=== PATIENT | female | born 1935 | race Caucasian/White ===

== ENCOUNTER 2018-10-16 06:21 | Inpatient (IN) ==
--- NOTE | 2018-10-08 15:15 | EKG Report ---
Test Performed on : 10/08/2018 2:39:27 PM Test Reason : PAT Blood Pressure : / mmHG Vent. Rate : 079 BPM Atrial Rate : 079 BPM P-R Int : 162 ms QRS Dur : 086 ms QT Int : 380 ms P-R-T Axes : 066 054 047 degrees QTc Int : 435 ms Normal sinus rhythm. Nonspecific ST and T wave abnormality Abnormal ECG When compared with ECG of 11-SEP-2017 10:26, premature ventricular complexes. are no longer present Nonspecific T wave abnormality has replaced inverted T waves in Inferior leads Confirmed by Samuel EDWARDS, Callum Birmingham ([id number]) on 10/09/2018 10:57:05 AM
[2018-10-08 15:31] LABS: HEMATOCRIT 35.1 % (37.0-47.0); HEMOGLOBIN 11.3 g/dL (12.0-16.0); MCH 30.1 PG (27-31); MCHC 32.2 g/dL (33-37); MCV 93.6 FL (81-99); MPV 11.8 FL (7.4-10.4); RBC 3.75 XMIL (4.2-5.4); RDW 13.5 % (11.5-14.5); WBC 7.15 X1000 (4.8-10.8)
[2018-10-08 15:54] LABS: CALCIUM 9.1 mg/dL (8.8-10.2); CREATININE 1.1 mg/dL (0.5-0.9)
[2018-10-16] MEDS ORDERED: NITROGLYCERIN 50 MG/D5W 50 MG/250 ML IV.SOLN ONE (06:48)
[2018-10-16] MEDS ORDERED: LR 1,000 ML ONE ×2 (06:55→12:28)
[2018-10-16] MEDS ORDERED: KEFZOL 1 GM/D5W 1 GM/50 ML IVPB ONE (06:55)
[2018-10-16] MEDS ORDERED: XYLOCAINE-MPF 2% ONE (08:42)
[2018-10-16] MEDS ORDERED: SODIUM CHLORIDE 0.9% 10 ML ONE (08:42)
[2018-10-16] MEDS ORDERED: QUELICIN (DOSE) ONE (08:42)
[2018-10-16] MEDS ORDERED: ROBINUL ONE (08:42)
[2018-10-16] MEDS ORDERED: ZEMURON ONE (08:42)
[2018-10-16] MEDS ORDERED: FENTANYL ONE (08:45)
[2018-10-16] MEDS ORDERED: DIPRIVAN 1% ONE (08:45)
[2018-10-16] MEDS ORDERED: LUBRIFRESH PM OPH OINTMENT ONE (08:46)
[2018-10-16] MEDS ORDERED: KEFZOL ONE (09:24)
[2018-10-16] MEDS ORDERED: XYLOCAINE 1% ONE (09:24)
[2018-10-16] MEDS ORDERED: NS 500 ML ONE (09:24)
[2018-10-16] MEDS ORDERED: NS 1,000 ML ONE (09:25)
[2018-10-16] MEDS ORDERED: ZOFRAN ONE (10:23)
[2018-10-16] MEDS ORDERED: NEOSTIGMINE ONE (10:31)
[2018-10-16] MEDS ORDERED: HEPARIN (DOSE) ONE (10:36)
[2018-10-16] MEDS: HEPARIN ONE ×2 (10:54→10:56)
[2018-10-16] MEDS ORDERED: NEO-SYNEPHRINE ONE (11:03)
[2018-10-16] MEDS: MARCAINE 0.25% PF/EPI 1:200,000 ONE ×2 (11:08→11:28)
[2018-10-16] MEDS ORDERED: DECADRON ONE (12:01)
[2018-10-16] MEDS ORDERED: LR 0 ML ONE (12:05)
[2018-10-16] MEDS ORDERED: LR 500 ML ONE (12:21)
[2018-10-16] MEDS ORDERED: OFIRMEV 1000 MG/ISOTONIC SOLN 1,000 MG/100 ML BOTTLE ONE (12:38)
--- NOTE | 2018-10-16 13:52 | OPERATIVE NOTE ---
PROCEDURE DATE: 10/16/2018 PROCEDURE PERFORMED: Right carotid endarterectomy with patch angioplasty. SURGEON: Rajat Landon MD CONTACT WORKER LITHOGRAPHY: Tavo Flores RN PREOPERATIVE DIAGNOSIS: High-grade right internal carotid stenosis. POSTOPERATIVE DIAGNOSIS: High-grade right internal carotid stenosis. DESCRIPTION OF PROCEDURE: Satisfactory general endotracheal anesthesia was achieved, the right side of the neck was prepped and draped in a sterile fashion. We marked the skin in a transverse fashion. We anesthetized the skin with 0.25 Marcaine with epinephrine. We incised the skin, and carried our incision through the platysma. We achieved satisfactory hemostasis. We then dissected along the anterior border of the sternocleidomastoid muscle. We then dissected down to the common carotid artery and surrounded it with an umbilical tape. We dissected out the branch vessels, surrounded the external carotid and superior thyroid with a large vessel loop, 5000 units of heparin were given systemically. We then dissected the internal carotid, there was a extensive amount of plaque. We had to divide some small branches of the veins and divided it to get high enough. We identified where the ansa merged with the hypoglossal nerve. This then allowed us to get up high in the internal carotid and there we clamped it with a profunda clamp. We clamped the common carotid with an angled DeBakey clamp and then used a vessel loop on the external carotid under 2.5 loupe magnification. We then incised the common and extended it with the Lovelace scissors. There was a significant high-grade stenosis in the internal carotid that was the source of problem. We were able to get through that above it to normal artery. We then inserted a 4 to 3 mm Sundt shunt. Clamp time was 2 minutes. Under 2.5 loupe magnification, we then raised the plaque out of the bulb and an eversion endarterectomy out of the external and then dissected the internal and removed the significant plaque there. We then irrigated the endarterectomized vessel and removed all leaflets we could identify. The 1 x 6 bovine patch had been soaked and then it was brought into the wound, we then constructed the patch angioplasty with a 6-0 Prolene running stitch. As we neared completion, we back bled the external, removed the shunt from the internal, and once again, clamped it off with a profunda clamp. We then removed the shunt from the common fore bleeding the common as well. We then finished the patch angioplasty. We held the internal occluded, opened the external, then the common, and after 5 seconds opened the internal. Two additional stitches were placed to achieve complete hemostasis along the course of the patch angioplasty. We irrigated out the wound with Kefzol-impregnated saline. We placed a David drain within the wound. Hemostasis was satisfactory. We secured the drain at the skin level with a 2-0 silk stitch. We then proceeded to close the platysma with a running 3-0 Polysorb. Once again, injected with 0.25 Marcaine with epinephrine the subcutaneous tissue and dermis. We then closed the skin with a 4-0 Polysorb subcuticular stitch. A Telfa and sterile OpSite was applied. A sterile gauze dressing was placed at the exit site of the drain. She tolerated the procedure satisfactory, was awakened at the time of this dictation. cc: Rajat Landon MD MTDD
[2018-10-16] MEDS ORDERED: ZOFRAN IV PRN (13:58)
[2018-10-16] MEDS ORDERED: ULTRAM PO PRN (13:58)
[2018-10-16] MEDS: ALBUTEROL NEB INH SCH ×4 (14:00→21:06)
[2018-10-16] MEDS: LR 1,000 ML IV SCH (14:38)
[2018-10-16] MEDS: OFIRMEV 1000 MG/ISOTONIC SOLN 1,000 MG/100 ML BOTTLE IV SCH ×2 (17:06→23:33)
[2018-10-16] MEDS: DESYREL PO SCH (20:48)
[2018-10-16] MEDS: COREG PO SCH (20:48)
[2018-10-17] MEDS: LR 1,000 ML IV SCH (03:39)
[2018-10-17] MEDS: OFIRMEV 1000 MG/ISOTONIC SOLN 1,000 MG/100 ML BOTTLE IV SCH (05:56)
[2018-10-17] MEDS: ALBUTEROL NEB INH SCH ×4 (07:21→21:39)
[2018-10-17] MEDS: COREG PO SCH ×2 (08:00→21:47)
[2018-10-17] MEDS ORDERED: PRAVACHOL PO SCH (09:00)
[2018-10-17] MEDS ORDERED: HYZAAR 50/12.5 MG PO SCH (09:00)
[2018-10-17] MEDS ORDERED: CATAPRES PO SCH (09:00)
[2018-10-17] MEDS ORDERED: HYGROTON PO SCH (09:00)
[2018-10-17] MEDS ORDERED: KLOR-CON PO SCH (09:00)
[2018-10-17] MEDS ORDERED: ASPIRIN PO SCH ×2 (09:00)
[2018-10-17] MEDS: DESYREL PO SCH (21:46)
--- NOTE | 2018-10-17 22:41 | GENERAL SURGERY PROGRESS NOTE ---
DATE: 10/17/2018 SUBJECTIVE: The patient is doing well. She has a little bit of a sore neck but otherwise feels fine. OBJECTIVE: She is afebrile. Her pulse, respiratory rate and O2 saturation are all stable. Her blood pressure, however, has ranged from 180 to low 200 systolic.General: She is awake, alert, oriented x4. No acute distress. Neurologic: Cranial nerves 2-12 grossly intact. Light touch sensation is intact throughout. She moves all extremities equally and well. Neck: Right neck bandage is clean and dry. There is mild swelling but no evidence of hematoma. ASSESSMENT/PLAN: 82-year-old female postoperative day 1 right carotid endarterectomy. She has been restarted on her home blood pressure medicines this morning. We will monitor this and if it improves, I will send her out of the ICU and then anticipate discharge tomorrow. We will also start her on a regular diet. cc: MD Rajat Rangel MD
[2018-10-18 03:54] LABS: URINE SOURCE CLEAN CATCH
[2018-10-18 04:01] LABS: BILIRUBIN URINE NEGATIVE (NEGATIVE); BLOOD URINE NEGATIVE (NEGATIVE); COLOR STRAW; GLUCOSE URINE NEGATIVE (NEGATIVE); KETONE URINE NEGATIVE (NEGATIVE); LEUKOCYTES URINE SMALL (NEGATIVE); NITRITE URINE NEGATIVE (NEGATIVE); PROTEIN URINE NEGATIVE (NEGATIVE); TURBIDITY URINE CLEAR (CLEAR); UROBILINOGEN URINE NORMAL (NORMAL)
[2018-10-18 04:02] LABS: UR EPITHELIAL CELLS <10 /HPF (<10); URINE BACTERIA NEGATIVE /HPF; URINE RBC <10 /HPF (<10); URINE WBC <10 /HPF (<10)
[2018-10-18 07:53] VITALS: BP 180/72
--- NOTE | 2018-10-18 12:16 | GENERAL SURGERY PROGRESS NOTE ---
DATE: 10/18/2018 SUBJECTIVE: The patient is feeling better. No acute complaints overnight. OBJECTIVE: She is afebrile. Vital signs are stable. Blood pressure is now in the 120s to 150s. General: She is alert and oriented x4. No acute distress. Sitting up in a chair. Neck: Supple. No significant swelling. Incisional dressing is clean and dry. The KENDALL drain has scant serosanguineous. ASSESSMENT/PLAN: An 82-year-old female postoperative day 2 from a right carotid endarterectomy. She is stable. We will remove the drain and discharge her home today. Instructions were given. She will follow up with Dr. Landon in 1 to 2 weeks. cc: MD Rajat Rangel MD
== END 2018-10-18 09:00 | disposition home or self-care (01) | DRG 39 ==
LOC: SURHOLD 06:21 → ICU 13:57 → 4N 10-17 16:35
PROVIDERS: ADMIT Surgery; ATTEND Surgery
CPT/HCPCS: 80048; 81001; 85027; 87088; 88304; 93005; 93010; 94640; A9270; C1763; J0131; J0330; J0690; J1100; J1644; J2370; J2405; J3010; J7030; J7040; J7120